=== PATIENT | female | born 1995 | race Caucasian/White ===

== ENCOUNTER 2018-01-24 11:05 | Emergency (ER) | payer OTHER ==
[2018-01-24] MEDS ORDERED: IBUPROFEN 600 MG TAB PO ONE (11:47)
[2018-01-24] MEDS ORDERED: DEXAMETHASONE 4 MG TAB PO ONE (11:47)
[2018-01-24 13:14] VITALS: BP 119/69
--- NOTE | 2018-01-24 13:16 | EDPHY ---
H & P Smoking Status: Never smoked Time Seen by Provider: 01/24/18 11:23 HPI/ROS: CHIEF COMPLAINT: Sore throat, throat swelling HISTORY OF PRESENT ILLNESS: 22-year-old female presents emergency department with sore throat and throat swelling. The patient states that this has been present for last few days. She states that is getting worse. She denies a fever. She has also noted swelling to her eyelids intermittently over last 1 week. She states that it is worse especially when she lies down at night. No known allergies to anything. She has tried Benadryl with relief although has not resolved. She denies pain in her abdomen. Denies pain in her chest or difficulty breathing. No fevers or chills. REVIEW OF SYSTEMS: Constitutional: No fever, no chills. Eyes: No double or blurry vision. ENT: Sore throat as above Respiratory: No cough, no shortness of breath. Cardiac: No chest pain. Gastrointestinal: No abdominal pain, vomiting or diarrhea. Genitourinary: No dysuria. Musculoskeletal: No neck or back pain. Skin: No rashes. Neurological: No headache. (RozSusu burns) Past Medical/Surgical History: Negative (RozSusu burns) Social History: [employer] student (RozSusu burns) Physical Exam: General Appearance: Alert, no distress. Eyes: Pupils equal and round. Extraocular motions are all intact. Mild swelling noted to bilateral upper eyelids. There is no redness. Nontender to palpate. No vesicles. ENT: Mouth: Mucous membranes moist. Mild posterior pharyngeal injection noted with erythema. No uvular swelling or shift. No muffled voice or trismus. Respiratory: No wheezing, rhonchi, or rales, lungs are clear to auscultation. Cardiovascular: Regular rate and rhythm. Gastrointestinal: Abdomen is soft and nontender, no masses, no rebound or guarding, bowel sounds normal. Neurological: Alert and oriented x 3, cranial nerves II through XII grossly intact Skin: Warm and dry, no rashes. Musculoskeletal: Nontender to palpate along the cervical, thoracic or lumbar spine. Neck is supple. Extremities: Full range of motion and no peripheral edema. Psychiatric: Patient is oriented X 3, there is no agitation. (RozSusu burns) Constitutional: Initial Vital Signs Temperature (C) 37.3 C 01/24/18 11:09 Heart Rate 89 01/24/18 11:09 Respiratory Rate 16 01/24/18 11:09 Blood Pressure 128/83 H 01/24/18 11:09 O2 Sat (%) 95 01/24/18 11:09 O2 Delivery Mode Room Air Allergies/Adverse Reactions: No Known Allergies Allergy (Unverified 01/24/18 11:09) Home Medications: Medication Instructions Recorded NK [No Known Home Meds] 01/24/18 Medical Decision Making ED Course/Re-evaluation: 22-year-old female presents emergency department with sore throat. She was given ibuprofen and oral Decadron. Rapid strep screen was negative. Mononucleosis was negative. I encouraged the patient to continue anti-inflammatories. She will return if she develops difficulty breathing or swallowing or if she feels worse in any way. Swelling to her upper eyelids could represent allergy. She has had some relief with Benadryl. She may continue this however she was cautioned regarding side effect of drowsiness. Patient was encouraged to return to the emergency department she developed worsening sore throat, difficulty swallowing, neck pain or swelling, fever, muffled voice, or if she felt worse in any way. (Susu Johns) The patient was evaluated and managed by the physician religious assistant. I have reviewed this chart and I agree with the findings and plan of care as documented , as indicated by my signature. I am the secondary supervising physician. ( Munira Chatman) Differential Diagnosis: Including but not limited to viral upper respiratory infection, strep pharyngitis, mononucleosis, peritonsillar abscess, allergic rhinitis (Susu Johns) - Data Points Medications Given: Discontinued Medications Dexamethasone (Decadron) 8 mg PO EDNOW ONE Stop: 01/24/18 11:48 Last Admin: 01/24/18 12:11 Dose: 8 mg Ibuprofen (Motrin) 600 mg PO EDNOW ONE Stop: 01/24/18 11:48 Last Admin: 01/24/18 12:11 Dose: 600 mg Departure - Departure Disposition: Home, Routine, Self-Care Clinical Impression: Sore throat, Fatigue Condition: Good Instructions: Pharyngitis (ED), Fatigue (ED) Additional Instructions: Adult Pain & Fever Control: We recommend Acetaminophen (Tylenol) and Ibuprofen (Motrin,Advil) for pain and fever control. When fever is high or pain severe, both drugs can be used at the same time, but at different intervals. Please note the time differences. Your dose is: Acetaminophen 1000mg every 4 to 6 hours Ibuprofen 600mg every 8 hours with food Note: do not take Acetaminophen with Hydrocodone (Vicodin, Lortab) or Oycodone (Percocet). These medications also contain Acetaminophen. No more than 3000mg of Acetaminophen should be taken in 24 hours (for an adult). Call [phone] for the results of your throat culture in 48 hr. Return to the emergency department if you develop difficulty breathing or swallowing or if you feel worse in any way. Referrals: BRENDAN Ashley,. [Clinic] - As per Instructions Carl Sorto DO [Doctor of Osteopathy] - As per Instructions
== END 2018-01-24 14:13 | disposition home or self-care (01) ==
DX: J02.9 Acute pharyngitis, unspecified (principal); R53.83 Other fatigue; R22.0 Localized swelling, mass and lump, head